=== PATIENT | female | born 1965 | race Caucasian/White ===

== ENCOUNTER 2017-09-06 13:26 | Inpatient (IN) | payer OTHER ==
[~2017-09-06] VITALS: Ht 175.3 cm; Wt 100.2 kg
[2017-09-06] MEDS ORDERED: acetaminophen 325mg tablet PO STA (13:55)
[2017-09-06] MEDS ORDERED: normal saline 1000ML IV soln IV ONE (13:55)
[2017-09-06 14:25] LABS: HEMATOCRIT 25.4 % (35.0-45.0); HEMOGLOBIN 8.4 g/dl (12.0-16.0); MEAN CORPUSCULAR HEMOGLOBIN 23.6 PG (27.0-31.0); MEAN CORPUSCULAR HGB CONC 33.1 % (33.0-36.5); MEAN CORPUSCULAR VOLUME 71.2 FL (78-98); MEAN PLATELET VOLUME 10.1 FL (7.4-10.4); PLATELET COUNT 258 X10'3 (140-440); RED BLOOD COUNT 3.57 X10'6 (4.20-5.60); RED CELL DISTRIBUTION WIDTH 19.6 % (11.5-14.5)
[2017-09-06 14:36] LABS: WHITE BLOOD COUNT 31.8 X10'3 (4.5-11.0)
[2017-09-06] MEDS ORDERED: vancomycin/NS 1 GM ADD-VANTAGE 250 ML IV ONE (14:40)
[2017-09-06] MEDS ORDERED: CefTRIAXone 2gm/NS 100ml IVPB 100 ML IV ONE (14:40)
[2017-09-06 14:49] LABS: ALANINE AMINOTRANSFERASE 51 U/L (12-78); ALBUMIN 1.9 G/DL (3.4-5.0); ALBUMIN/GLOBULIN RATIO 0.4 (1.1-1.5); ALKALINE PHOSPHATASE 218 IU/L (46-116); ANION GAP 13 (8-16); ASPARTATE AMINO TRANSFERASE 36 U/L (10-37); BILIRUBIN,TOTAL 0.7 MG/DL (0.1-1.0); BLOOD UREA NITROGEN 17 MG/DL (7-18); BUN/CREATININE RATIO 12.9 (6.6-38.0); CALCIUM 9.1 MG/DL (8.5-10.1); CHLORIDE 91 MMOL/L (99-107); CREATININE 1.32 MG/DL (0.40-0.90); GLUCOSE 123 MG/DL (70-104); SODIUM 128 MMOL/L (135-145); TOTAL CARBON DIOXIDE 23.9 MMOL/L (24-32); TOTAL PROTEIN 6.7 G/DL (6.4-8.2); eGFR 43 ML/MIN
[2017-09-06 14:52] LABS: POTASSIUM 2.9 MMOL/L (3.5-5.1)
[2017-09-06 14:54] LABS: ANISOCYTOSIS 2+; PLATELET ESTIMATE NORMAL; TOTAL CELLS COUNTED 100
[2017-09-06 14:55] LABS: TOXIC GRANULATION 1+; TOXIC VACUOLATION 1+
[2017-09-06] MEDS ORDERED: potassium Cl oral solution 20 MEQ/15 ML PO ONE (14:55)
[2017-09-06 14:56] LABS: HYPOCHROMASIA 1+; LARGE PLATELETS FEW; SCHISTOCYTES FEW; TARGET CELLS FEW
[2017-09-06 15:54] LABS: COLOR,URINE YELLOW (Yellow); GLUCOSE, URINE NEGATIVE (Neg); KETONES,URINE TRACE mg/dl (Neg); LEUKOCYTE ESTERASE ,URINE MODERATE (Neg); NITRITES, URINE NEGATIVE (Neg); OCCULT BLOOD,URINE MODERATE (Neg); PROTEIN,URINE 100 mg/dl (Neg)
[2017-09-06 15:58] LABS: CLARITY,URINE Cloudy (Clear); UA COLLECTION TYPE CLN CATCH MIDSTREAM
[2017-09-06 16:06] LABS: WBC,URINE 50-100 /HPF (0-4)
[2017-09-06 16:07] LABS: BACTERIA,URINE 2+ /HPF (Neg); RBC,URINE 0-2 /HPF (0-2); SQUAMOUS EPITHELIAL CELL,UR MODERATE /LPF (FEW)
[2017-09-06] MEDS ORDERED: magnesium hydroxide 30ml (MOM) UD suspension PO PRN (16:20)
[2017-09-06] MEDS ORDERED: mag hydrox/Alum hydrox/simeth 30ml oral suspension PO PRN (16:20)
[2017-09-06] MEDS ORDERED: ondansetron/PF 4mg/2ml inj IV PRN (16:20)
[2017-09-06] MEDS ORDERED: potassium Cl 40MEQ/NS 500ml 500 ML IV PRN ×2 (16:20)
[2017-09-06] MEDS ORDERED: potassium Cl 20 mEq SR tablet PO PRN ×2 (16:20)
[2017-09-06] MEDS ORDERED: acetaminophen 325mg tablet PO PRN (16:20)
[2017-09-06] MEDS: enoxaparin 40mg/0.4ml syringe SUBCUT SCH (16:20)
[2017-09-06] MEDS ORDERED: iohexol 300mg/ml 100ml inj. ONE (16:50)
[2017-09-06 19:58] LABS: CREATINE KINASE 68 U/L (26-192)
[2017-09-06] MEDS ORDERED: doxycycline inj 100 MG in normal saline 100ml IV soln 100 ML IV SCH (20:00)
[2017-09-06] MEDS: HYDROcodone/acetaminophen 5mg/325mg tablet PO PRN (20:34)
[2017-09-06] MEDS ORDERED: temazepam 15mg capsule PO PRN (21:00)
[2017-09-06 21:30] VITALS: BP 112/59
[2017-09-06] MEDS: normal saline 1000ml 1,000 ML IV SCH (21:52)
[2017-09-06] MEDS: lactobacillus rhamnosus 10,000 MMU CELLS/CAPSULE PO SCH (22:04)
[2017-09-07] VITALS: BP 121/62
[2017-09-07] MEDS: normal saline 1000ml 1,000 ML IV SCH ×3 (02:19→22:10)
[2017-09-07] MEDS: acetaminophen 325mg tablet PO PRN ×2 (04:57→21:34)
[2017-09-07] MEDS: HYDROcodone/acetaminophen 5mg/325mg tablet PO PRN (04:58)
[2017-09-07 05:05] VITALS: BP 133/57
[2017-09-07 05:28] LABS: HEMATOCRIT 23.5 % (35.0-45.0); HEMOGLOBIN 7.6 g/dl (12.0-16.0); MEAN CORPUSCULAR HEMOGLOBIN 23.3 PG (27.0-31.0); MEAN CORPUSCULAR HGB CONC 32.5 % (33.0-36.5); MEAN CORPUSCULAR VOLUME 71.6 FL (78-98); MEAN PLATELET VOLUME 10.3 FL (7.4-10.4); PLATELET COUNT 289 X10'3 (140-440); RED BLOOD COUNT 3.28 X10'6 (4.20-5.60); RED CELL DISTRIBUTION WIDTH 20.1 % (11.5-14.5); WHITE BLOOD COUNT 24.8 X10'3 (4.5-11.0)
[2017-09-07 05:33] LABS: ALBUMIN 1.6 G/DL (3.4-5.0); ANION GAP 10 (8-16); BLOOD UREA NITROGEN 12 MG/DL (7-18); BUN/CREATININE RATIO 12.8 (6.6-38.0); CALCIUM 8.4 MG/DL (8.5-10.1); CHLORIDE 101 MMOL/L (99-107); CREATININE 0.94 MG/DL (0.40-0.90); GLUCOSE 119 MG/DL (70-104); POTASSIUM 3.7 MMOL/L (3.5-5.1); SODIUM 134 MMOL/L (135-145); TOTAL CARBON DIOXIDE 22.6 MMOL/L (24-32); eGFR 63 ML/MIN
[2017-09-07 05:58] LABS: BANDS% (MANUAL) 3 % (0-10); LYMPHOCYTES % (MANUAL) 4 % (21-51); MONOCYTES % (MANUAL) 2 % (2-12); NEUTROPHILS % (MANUAL) 91 % (42-75); PLATELET ESTIMATE NORMAL; TOTAL CELLS COUNTED 100
[2017-09-07 05:59] LABS: ANISOCYTOSIS 2+; HYPOCHROMASIA 2+; TEAR DROP CELLS 1+; TOXIC GRANULATION 1+
[2017-09-07 06:00] LABS: SCHISTOCYTES FEW
[2017-09-07] MEDS: enoxaparin 40mg/0.4ml syringe SUBCUT SCH (08:00)
[2017-09-07] MEDS: K and/or MAG REPLACEMENT MC SCH (08:00)
[2017-09-07] MEDS: lactobacillus rhamnosus 10,000 MMU CELLS/CAPSULE PO SCH ×2 (09:10→17:49)
[2017-09-07] MEDS: levoFLOXACIN-Levaquin 750MG/D5 150 ML IV SCH (09:10)
[2017-09-07] MEDS ORDERED: CefTRIAXone 2gm/D5W 50ml ADVTG 100 ML IV SCH (12:00)
[2017-09-07] MEDS ORDERED: NO HOME MEDS (12:11)
[2017-09-07 13:01] VITALS: BP 110/52
[2017-09-07 20:00] VITALS: BP 137/65
[2017-09-08] VITALS: BP 141/68
[2017-09-08 03:59] VITALS: BP 135/60
[2017-09-08 05:40] LABS: HEMOGLOBIN 7.1 g/dl (12.0-16.0); MEAN CORPUSCULAR HEMOGLOBIN 23.2 PG (27.0-31.0); MEAN CORPUSCULAR VOLUME 70.3 FL (78-98); MEAN PLATELET VOLUME 9.2 FL (7.4-10.4); PLATELET COUNT 324 X10'3 (140-440); RED BLOOD COUNT 3.06 X10'6 (4.20-5.60); RED CELL DISTRIBUTION WIDTH 19.5 % (11.5-14.5); WHITE BLOOD COUNT 23.5 X10'3 (4.5-11.0)
[2017-09-08 05:50] LABS: ALBUMIN 1.4 G/DL (3.4-5.0); ANION GAP 10 (8-16); BLOOD UREA NITROGEN 6 MG/DL (7-18); CALCIUM 8.5 MG/DL (8.5-10.1); CHLORIDE 102 MMOL/L (99-107); CREATININE 0.75 MG/DL (0.40-0.90); GLUCOSE 99 MG/DL (70-104); POTASSIUM 3.8 MMOL/L (3.5-5.1); SODIUM 136 MMOL/L (135-145); TOTAL CARBON DIOXIDE 24.1 MMOL/L (24-32); eGFR 82 ML/MIN
[2017-09-08 05:57] LABS: HEMATOCRIT 21.5 % (35.0-45.0)
[2017-09-08 06:34] LABS: ANISOCYTOSIS 2+; MICROCYTOSIS 2+; PLATELET ESTIMATE NORMAL; TOTAL CELLS COUNTED 100
[2017-09-08 06:38] LABS: HYPOCHROMASIA 2+; TOXIC GRANULATION 1+
[2017-09-08 07:00] VITALS: BP 147/71
[2017-09-08] MEDS: lactobacillus rhamnosus 10,000 MMU CELLS/CAPSULE PO SCH ×2 (07:07→20:46)
[2017-09-08] MEDS: CefTRIAXone 2gm/NS 100ml IVPB 100 ML IV SCH (07:07)
[2017-09-08] MEDS: acetaminophen 325mg tablet PO PRN (07:08)
[2017-09-08] MEDS: enoxaparin 40mg/0.4ml syringe SUBCUT SCH (08:00)
[2017-09-08] MEDS: K and/or MAG REPLACEMENT MC SCH (08:00)
[2017-09-08] MEDS: levoFLOXACIN-Levaquin 750MG/D5 150 ML IV SCH (08:38)
[2017-09-08] MEDS: normal saline 1000ml 1,000 ML IV SCH ×3 (08:38→20:09)
[2017-09-08 11:00] VITALS: BP 125/62
[2017-09-08] MEDS: LACTOSE-FREE FOOD 237ML (BOOST) PO SCH ×2 (13:36→18:00)
[2017-09-08 19:00] VITALS: BP 155/74
[2017-09-09] VITALS: BP 139/72
[2017-09-09 05:24] LABS: HEMOGLOBIN 7.1 g/dl (12.0-16.0); MEAN CORPUSCULAR HEMOGLOBIN 23.2 PG (27.0-31.0); MEAN CORPUSCULAR HGB CONC 32.3 % (33.0-36.5); MEAN CORPUSCULAR VOLUME 71.7 FL (78-98); MEAN PLATELET VOLUME 9.1 FL (7.4-10.4); PLATELET COUNT 398 X10'3 (140-440); RED BLOOD COUNT 3.04 X10'6 (4.20-5.60); RED CELL DISTRIBUTION WIDTH 19.9 % (11.5-14.5); WHITE BLOOD COUNT 21.5 X10'3 (4.5-11.0)
[2017-09-09 05:55] LABS: HEMATOCRIT 21.8 % (35.0-45.0)
[2017-09-09 05:56] LABS: ALBUMIN 1.4 G/DL (3.4-5.0); ANION GAP 9 (8-16); BLOOD UREA NITROGEN 7 MG/DL (7-18); BUN/CREATININE RATIO 10.8 (6.6-38.0); CALCIUM 8.5 MG/DL (8.5-10.1); CHLORIDE 105 MMOL/L (99-107); CREATININE 0.65 MG/DL (0.40-0.90); GLUCOSE 102 MG/DL (70-104); POTASSIUM 3.5 MMOL/L (3.5-5.1); SODIUM 139 MMOL/L (135-145); eGFR > 90 ML/MIN
[2017-09-09 06:31] LABS: ANISOCYTOSIS 2+; PLATELET ESTIMATE NORMAL; TOTAL CELLS COUNTED 100
[2017-09-09 06:32] LABS: HYPOCHROMASIA 1+; MICROCYTOSIS 1+; POLYCHROMASIA 1+; TOXIC GRANULATION 2+
[2017-09-09 06:33] LABS: ROULEAUX 1+; TARGET CELLS 2+
[2017-09-09 08:00] VITALS: BP 134/67
[2017-09-09] MEDS: enoxaparin 40mg/0.4ml syringe SUBCUT SCH (08:00)
[2017-09-09] MEDS: K and/or MAG REPLACEMENT MC SCH (08:00)
[2017-09-09] MEDS: normal saline 1000ml 1,000 ML IV SCH (08:33)
[2017-09-09] MEDS: CefTRIAXone 2gm/NS 100ml IVPB 100 ML IV SCH (08:33)
[2017-09-09] MEDS: lactobacillus rhamnosus 10,000 MMU CELLS/CAPSULE PO SCH ×2 (08:34→20:20)
[2017-09-09] MEDS: LACTOSE-FREE FOOD 237ML (BOOST) PO SCH ×3 (08:34→19:12)
[2017-09-09] MEDS: levoFLOXACIN-Levaquin 750MG/D5 150 ML IV SCH (10:42)
[2017-09-09 11:00] VITALS: BP 132/65
[2017-09-09 19:30] VITALS: BP 141/73
[2017-09-10] VITALS (9 sets, daily range): BP systolic 118–145; BP diastolic 61–82
[2017-09-10] MEDS: acetaminophen 325mg tablet PO PRN ×2 (03:17→18:07)
[2017-09-10 05:29] LABS: MEAN CORPUSCULAR HEMOGLOBIN 23.5 PG (27.0-31.0); MEAN CORPUSCULAR HGB CONC 32.7 % (33.0-36.5); MEAN PLATELET VOLUME 8.9 FL (7.4-10.4); PLATELET COUNT 446 X10'3 (140-440); RED BLOOD COUNT 2.86 X10'6 (4.20-5.60); RED CELL DISTRIBUTION WIDTH 19.5 % (11.5-14.5)
[2017-09-10 05:39] LABS: HEMATOCRIT 20.6 % (35.0-45.0); HEMOGLOBIN 6.7 g/dl (12.0-16.0)
[2017-09-10 06:03] LABS: ALBUMIN 1.4 G/DL (3.4-5.0); ANION GAP 11 (8-16); BLOOD UREA NITROGEN 6 MG/DL (7-18); BUN/CREATININE RATIO 10.2 (6.6-38.0); CALCIUM 8.2 MG/DL (8.5-10.1); CHLORIDE 101 MMOL/L (99-107); CREATININE 0.59 MG/DL (0.40-0.90); GLUCOSE 104 MG/DL (70-104); POTASSIUM 3.6 MMOL/L (3.5-5.1); SODIUM 135 MMOL/L (135-145); TOTAL CARBON DIOXIDE 23.3 MMOL/L (24-32); eGFR > 90 ML/MIN
[2017-09-10 06:08] LABS: ANISOCYTOSIS 2+; MICROCYTOSIS 1+; PLATELET ESTIMATE INCREASED; TARGET CELLS 1+; TOTAL CELLS COUNTED 100; TOXIC GRANULATION 1+
[2017-09-10 06:09] LABS: POLYCHROMASIA 1+
[2017-09-10] MEDS: K and/or MAG REPLACEMENT MC SCH (07:45)
[2017-09-10] MEDS: lactobacillus rhamnosus 10,000 MMU CELLS/CAPSULE PO SCH ×2 (07:51→20:08)
[2017-09-10] MEDS: CefTRIAXone 2gm/NS 100ml IVPB 100 ML IV SCH (07:51)
[2017-09-10] MEDS: enoxaparin 40mg/0.4ml syringe SUBCUT SCH (07:52)
[2017-09-10] MEDS: LACTOSE-FREE FOOD 237ML (BOOST) PO SCH ×3 (08:00→18:07)
[2017-09-10] MEDS: levoFLOXACIN-Levaquin 750MG/D5 150 ML IV SCH (09:00)
[2017-09-11] MEDS: acetaminophen 325mg tablet PO PRN (00:25)
[2017-09-11 00:30] VITALS: BP 114/60
[2017-09-11] MEDS ORDERED: TRAM50TA2 PO (06:55)
[2017-09-11 07:00] VITALS: BP 140/74
[2017-09-11 07:15] LABS: BASOPHILS % (AUTO) 0 % (0-1); EOSINOPHILS # (AUTO) 0.5 X10'3 (0-0.9); EOSINOPHILS % (AUTO) 2.7 % (0-6); HEMATOCRIT 22.7 % (35.0-45.0); HEMOGLOBIN 7.4 g/dl (12.0-16.0); LYMPHOCYTES % (AUTO) 11.3 % (21-51); MEAN CORPUSCULAR HEMOGLOBIN 23.9 PG (27.0-31.0); MEAN CORPUSCULAR HGB CONC 32.4 % (33.0-36.5); MEAN CORPUSCULAR VOLUME 73.8 FL (78-98); MEAN PLATELET VOLUME 8.5 FL (7.4-10.4); MONOCYTES # (AUTO) 0.6 X10'3 (0-0.9); MONOCYTES % (AUTO) 3.4 % (2-12); NEUTROPHILS # (AUTO) 14.7 X10'3 (1.8-7.7); NEUTROPHILS % (AUTO) 82.6 % (42-75); PLATELET COUNT 521 X10'3 (140-440); RED BLOOD COUNT 3.08 X10'6 (4.20-5.60); RED CELL DISTRIBUTION WIDTH 20.2 % (11.5-14.5); WHITE BLOOD COUNT 17.8 X10'3 (4.5-11.0)
[2017-09-11 07:30] LABS: ALBUMIN 1.4 G/DL (3.4-5.0); ANION GAP 10 (8-16); BLOOD UREA NITROGEN 7 MG/DL (7-18); BUN/CREATININE RATIO 12.1 (6.6-38.0); CALCIUM 8.4 MG/DL (8.5-10.1); CHLORIDE 104 MMOL/L (99-107); CREATININE 0.58 MG/DL (0.40-0.90); GLUCOSE 100 MG/DL (70-104); POTASSIUM 4.2 MMOL/L (3.5-5.1); SODIUM 139 MMOL/L (135-145); TOTAL CARBON DIOXIDE 24.9 MMOL/L (24-32); eGFR > 90 ML/MIN
[2017-09-11] MEDS: levoFLOXACIN-Levaquin 750MG/D5 150 ML IV SCH (07:42)
[2017-09-11] MEDS: LACTOSE-FREE FOOD 237ML (BOOST) PO SCH ×3 (07:43→19:58)
[2017-09-11] MEDS: enoxaparin 40mg/0.4ml syringe SUBCUT SCH (08:00)
[2017-09-11] MEDS: K and/or MAG REPLACEMENT MC SCH (08:00)
[2017-09-11] MEDS: lactobacillus rhamnosus 10,000 MMU CELLS/CAPSULE PO SCH ×2 (09:04→19:59)
[2017-09-11] MEDS: CefTRIAXone 2gm/NS 100ml IVPB 100 ML IV SCH (09:05)
[2017-09-11 12:12] VITALS: BP 121/68
[2017-09-11 13:07] LABS: TOTAL CELLS COUNTED 100
[2017-09-11 13:08] LABS: BANDS% (MANUAL) 2 % (0-10); EOSINOPHILS % (MANUAL) 1 % (0-6); GIANT PLATELET FEW; LARGE PLATELETS FEW; LYMPHOCYTES % (MANUAL) 7 % (21-51); MONOCYTES % (MANUAL) 5 % (2-12); NEUTROPHILS % (MANUAL) 85 % (42-75); PLATELET ESTIMATE INCREASED
[2017-09-11 13:09] LABS: ANISOCYTOSIS 2+; HYPOCHROMASIA 1+; MICROCYTOSIS 1+; POLYCHROMASIA 1+; TARGET CELLS 2+; TOXIC GRANULATION 1+
[2017-09-11 19:45] VITALS: BP 132/63
[2017-09-11 23:30] VITALS: BP 139/54
[2017-09-12 05:40] LABS: BASOPHILS % (AUTO) 0.2 % (0-1); EOSINOPHILS # (AUTO) 0.8 X10'3 (0-0.9); HEMATOCRIT 24.5 % (35.0-45.0); HEMOGLOBIN 8.1 g/dl (12.0-16.0); LYMPHOCYTES # (AUTO) 2.1 X10'3 (1.1-4.8); MEAN CORPUSCULAR HEMOGLOBIN 24.3 PG (27.0-31.0); MEAN CORPUSCULAR VOLUME 73.5 FL (78-98); MEAN PLATELET VOLUME 8.2 FL (7.4-10.4); MONOCYTES # (AUTO) 0.7 X10'3 (0-0.9); MONOCYTES % (AUTO) 3.5 % (2-12); NEUTROPHILS # (AUTO) 15.9 X10'3 (1.8-7.7); NEUTROPHILS % (AUTO) 81.3 % (42-75); PLATELET COUNT 613 X10'3 (140-440); RED BLOOD COUNT 3.33 X10'6 (4.20-5.60); RED CELL DISTRIBUTION WIDTH 20.4 % (11.5-14.5); WHITE BLOOD COUNT 19.6 X10'3 (4.5-11.0)
[2017-09-12 05:53] LABS: ALBUMIN 1.6 G/DL (3.4-5.0); ANION GAP 8 (8-16); BLOOD UREA NITROGEN 7 MG/DL (7-18); BUN/CREATININE RATIO 9.9 (6.6-38.0); CHLORIDE 101 MMOL/L (99-107); CREATININE 0.71 MG/DL (0.40-0.90); GLUCOSE 102 MG/DL (70-104); POTASSIUM 4.6 MMOL/L (3.5-5.1); SODIUM 137 MMOL/L (135-145); TOTAL CARBON DIOXIDE 27.9 MMOL/L (24-32); eGFR 87 ML/MIN
[2017-09-12 07:37] VITALS: BP 136/62
[2017-09-12] MEDS: K and/or MAG REPLACEMENT MC SCH (07:38)
[2017-09-12] MEDS: enoxaparin 40mg/0.4ml syringe SUBCUT SCH (07:38)
[2017-09-12] MEDS: lactobacillus rhamnosus 10,000 MMU CELLS/CAPSULE PO SCH ×2 (07:40→20:10)
[2017-09-12] MEDS: levoFLOXACIN-Levaquin 750MG/D5 150 ML IV SCH (07:41)
[2017-09-12] MEDS: LACTOSE-FREE FOOD 237ML (BOOST) PO SCH ×3 (09:01→20:10)
[2017-09-12 11:42] VITALS: BP 123/54
[2017-09-12 19:00] VITALS: BP 134/46
[2017-09-13] VITALS: BP 132/61
[2017-09-13 07:10] LABS: BASOPHILS # (AUTO) 0.1 X10'3 (0-0.2); BASOPHILS % (AUTO) 0.3 % (0-1); EOSINOPHILS # (AUTO) 0.6 X10'3 (0-0.9); EOSINOPHILS % (AUTO) 3.5 % (0-6); HEMATOCRIT 23.3 % (35.0-45.0); HEMOGLOBIN 7.5 g/dl (12.0-16.0); LYMPHOCYTES # (AUTO) 1.7 X10'3 (1.1-4.8); LYMPHOCYTES % (AUTO) 9.3 % (21-51); MEAN CORPUSCULAR HGB CONC 32.4 % (33.0-36.5); MEAN CORPUSCULAR VOLUME 74.1 FL (78-98); MEAN PLATELET VOLUME 7.9 FL (7.4-10.4); MONOCYTES # (AUTO) 0.8 X10'3 (0-0.9); MONOCYTES % (AUTO) 4.4 % (2-12); NEUTROPHILS # (AUTO) 14.8 X10'3 (1.8-7.7); NEUTROPHILS % (AUTO) 82.5 % (42-75); PLATELET COUNT 614 X10'3 (140-440); RED BLOOD COUNT 3.14 X10'6 (4.20-5.60); RED CELL DISTRIBUTION WIDTH 20.9 % (11.5-14.5); WHITE BLOOD COUNT 17.9 X10'3 (4.5-11.0)
[2017-09-13 07:12] VITALS: BP 121/52
[2017-09-13 07:22] LABS: ALBUMIN 1.6 G/DL (3.4-5.0); ANION GAP 10 (8-16); BLOOD UREA NITROGEN 9 MG/DL (7-18); BUN/CREATININE RATIO 14.8 (6.6-38.0); CHLORIDE 100 MMOL/L (99-107); CREATININE 0.61 MG/DL (0.40-0.90); GLUCOSE 106 MG/DL (70-104); POTASSIUM 4.6 MMOL/L (3.5-5.1); SODIUM 136 MMOL/L (135-145); TOTAL CARBON DIOXIDE 25.9 MMOL/L (24-32); eGFR > 90 ML/MIN
[2017-09-13] MEDS: K and/or MAG REPLACEMENT MC SCH (08:00)
[2017-09-13] MEDS: enoxaparin 40mg/0.4ml syringe SUBCUT SCH (08:00)
[2017-09-13] MEDS: ferrous sulfate 325mg tablet PO SCH ×3 (08:15→17:21)
[2017-09-13] MEDS: lactobacillus rhamnosus 10,000 MMU CELLS/CAPSULE PO SCH ×2 (08:15→20:17)
[2017-09-13] MEDS: docusate sod 100mg capsule PO SCH ×2 (08:15→20:17)
[2017-09-13] MEDS: LACTOSE-FREE FOOD 237ML (BOOST) PO SCH ×3 (08:16→18:18)
[2017-09-13] MEDS: levoFLOXACIN-Levaquin 750MG/D5 150 ML IV SCH (08:16)
[2017-09-13 09:53] LABS: % IRON SATURATION 8 % (11-46); IRON 20 UG/DL (49-151); TOTAL IRON BINDING CAPACITY 258 UG/DL (259-388)
[2017-09-13 10:10] LABS: FERRITIN 186 NG/ML (8-252)
[2017-09-13 11:59] VITALS: BP 119/50
[2017-09-13 16:32] LABS: HEMATOCRIT 25.7 % (35.0-45.0); HEMOGLOBIN 8.3 g/dl (12.0-16.0); MEAN CORPUSCULAR HGB CONC 32.3 % (33.0-36.5); MEAN CORPUSCULAR VOLUME 74.2 FL (78-98); MEAN PLATELET VOLUME 8.1 FL (7.4-10.4); PLATELET COUNT 749 X10'3 (140-440); RED BLOOD COUNT 3.47 X10'6 (4.20-5.60); RED CELL DISTRIBUTION WIDTH 21.1 % (11.5-14.5); WHITE BLOOD COUNT 18.4 X10'3 (4.5-11.0)
[2017-09-13 20:00] VITALS: BP 135/53
[2017-09-13] MEDS ORDERED: HYDROcodone/acetaminophen 5mg/325mg tablet PO PRN (23:25)
[2017-09-13] MEDS ORDERED: HYDROcodone/acetaminophen 10/325mg tab PO PRN (23:25)
[2017-09-13] MEDS: HYDROcodone/acetaminophen 5mg/325mg tablet PO PRN (23:42)
[2017-09-14] VITALS: BP 128/64
[2017-09-14] MEDS: HYDROcodone/acetaminophen 5mg/325mg tablet PO PRN ×3 (05:12→14:15)
[2017-09-14 07:00] VITALS: BP 107/52
[2017-09-14] MEDS: ferrous sulfate 325mg tablet PO SCH ×2 (07:50→12:33)
[2017-09-14] MEDS: lactobacillus rhamnosus 10,000 MMU CELLS/CAPSULE PO SCH (07:50)
[2017-09-14] MEDS: levoFLOXACIN-Levaquin 750MG/D5 150 ML IV SCH (07:50)
[2017-09-14] MEDS: docusate sod 100mg capsule PO SCH (07:51)
[2017-09-14] MEDS: LACTOSE-FREE FOOD 237ML (BOOST) PO SCH ×2 (07:55→13:05)
[2017-09-14] MEDS: K and/or MAG REPLACEMENT MC SCH (08:00)
[2017-09-14] MEDS ORDERED: ascorbic acid 500mg tablet PO SCH (08:30)
[2017-09-14 09:09] LABS: BASOPHILS % (AUTO) 0.2 % (0-1); EOSINOPHILS # (AUTO) 0.4 X10'3 (0-0.9); EOSINOPHILS % (AUTO) 3.1 % (0-6); HEMATOCRIT 23.4 % (35.0-45.0); HEMOGLOBIN 7.5 g/dl (12.0-16.0); LYMPHOCYTES # (AUTO) 1.4 X10'3 (1.1-4.8); LYMPHOCYTES % (AUTO) 10.3 % (21-51); MEAN CORPUSCULAR HGB CONC 32.1 % (33.0-36.5); MEAN CORPUSCULAR VOLUME 74.7 FL (78-98); MEAN PLATELET VOLUME 8.2 FL (7.4-10.4); MONOCYTES # (AUTO) 0.5 X10'3 (0-0.9); MONOCYTES % (AUTO) 3.4 % (2-12); NEUTROPHILS # (AUTO) 11.5 X10'3 (1.8-7.7); PLATELET COUNT 622 X10'3 (140-440); RED BLOOD COUNT 3.13 X10'6 (4.20-5.60); RED CELL DISTRIBUTION WIDTH 21.6 % (11.5-14.5); WHITE BLOOD COUNT 13.9 X10'3 (4.5-11.0)
[2017-09-14] MEDS ORDERED: iohexol 300mg/ml 100ml inj. ONE (10:43)
[2017-09-14 11:47] VITALS: BP 122/63
[2017-09-14] MEDS ORDERED: LEVO750T46 PO (16:28)
== END 2017-09-14 16:45 | disposition home or self-care (01) | DRG 871 ==
LOC: ER 13:27 → EEVIPCON 13:27 → ED HOLD 16:19 → SUR 3N 21:30
PROVIDERS: ADMIT Hospitalist; ATTEND Family Medicine
PROC: BW211ZZ Computerized Tomography (CT Scan) of Abdomen and Pelvis using Low Osmolar Contrast (ICD-10-PCS; 2017-09-06)
PROC: 30233N1 Transfusion of Nonautologous Red Blood Cells into Peripheral Vein, Percutaneous Approach (ICD-10-PCS; 2017-09-10)
PROC: BW211ZZ Computerized Tomography (CT Scan) of Abdomen and Pelvis using Low Osmolar Contrast (ICD-10-PCS; principal; 2017-09-14)
DX: A41.9 Sepsis, unspecified organism (principal); J18.9 Pneumonia, unspecified organism; E87.1 Hypo-osmolality and hyponatremia; D50.9 Iron deficiency anemia, unspecified; F17.210 Nicotine dependence, cigarettes, uncomplicated; D63.8 Anemia in other chronic diseases classified elsewhere; N39.0 Urinary tract infection, site not specified; E86.0 Dehydration; B96.1 Klebsiella pneumoniae [K. pneumoniae] as the cause of diseases classified elsewhere; E87.6 Hypokalemia; J06.9 Acute upper respiratory infection, unspecified; Z83.2 Family history of diseases of the blood and blood-forming organs and certain disorders involving the immune mechanism; Z87.440 Personal history of urinary (tract) infections
CPT/HCPCS: 36415; 70450; 71045; 71046; 72125; 74177; 80048; 80053; 81001; 82550; 82553; 82728; 83540; 83550; 83605; 84145; 85025; 85027; 86885; 86900; 86901; 86920; 87040; 87070; 87077; 87088; 87186; 87210; 87502; 87503; 93005; 96365; 99285; J0696; J1650; J1956; J3370; J3490; J7030; P9016; Q9967

== ENCOUNTER 2017-09-26 14:47 | Outpatient (CLI) | payer OTHER ==
[~2017-09-26 14:47] MED LIST: LEVO750T46 PO; iohexol 300mg/ml 100ml inj. ONE
[2017-09-26 15:38] LABS: BASOPHILS # (AUTO) 0.1 X10'3 (0-0.2); BASOPHILS % (AUTO) 0.6 % (0-1); EOSINOPHILS # (AUTO) 1.1 X10'3 (0-0.9); EOSINOPHILS % (AUTO) 9.7 % (0-6); HEMATOCRIT 31.1 % (35.0-45.0); LYMPHOCYTES # (AUTO) 3.2 X10'3 (1.1-4.8); LYMPHOCYTES % (AUTO) 27.4 % (21-51); MEAN CORPUSCULAR HEMOGLOBIN 24.7 PG (27.0-31.0); MEAN CORPUSCULAR HGB CONC 32.1 % (33.0-36.5); MEAN CORPUSCULAR VOLUME 77.2 FL (78-98); MEAN PLATELET VOLUME 7.8 FL (7.4-10.4); MONOCYTES # (AUTO) 0.6 X10'3 (0-0.9); MONOCYTES % (AUTO) 4.9 % (2-12); NEUTROPHILS # (AUTO) 6.7 X10'3 (1.8-7.7); NEUTROPHILS % (AUTO) 57.4 % (42-75); PLATELET COUNT 459 X10'3 (140-440); RED BLOOD COUNT 4.03 X10'6 (4.20-5.60); RED CELL DISTRIBUTION WIDTH 23.8 % (11.5-14.5); WHITE BLOOD COUNT 11.7 X10'3 (4.5-11.0)
[2017-09-26 15:53] LABS: ALBUMIN 2.7 G/DL (3.4-5.0); ANION GAP 8 (8-16); BLOOD UREA NITROGEN 8 MG/DL (7-18); CALCIUM 9.6 MG/DL (8.5-10.1); CHLORIDE 103 MMOL/L (99-107); GLUCOSE 102 MG/DL (70-104); POTASSIUM 3.9 MMOL/L (3.5-5.1); SODIUM 140 MMOL/L (135-145); TOTAL CARBON DIOXIDE 28.7 MMOL/L (24-32); eGFR 76 ML/MIN
== END 2017-09-26 23:59 | disposition home or self-care (01) ==
LOC: 64 CT 14:47
PROVIDERS: ATTEND Internal Medicine Infectious Disease
DX: L02.211 Cutaneous abscess of abdominal wall (principal); K80.20 Calculus of gallbladder without cholecystitis without obstruction
CPT/HCPCS: 36415; 74177; 80048; 85025; J7030; Q9967

== ENCOUNTER 2017-09-28 07:13 | Day surgery (SDC) | payer OTHER ==
[~2017-09-28] VITALS: Ht 175.3 cm; Wt 94.8 kg
[2017-09-28] VITALS (14 sets, daily range): BP systolic 111–142; BP diastolic 39–81
[~2017-09-28 07:13] MED LIST changes: -iohexol 300mg/ml 100ml inj. ONE
[2017-09-28] MEDS ORDERED: LEVO750T21 PO (07:41)
[2017-09-28] MEDS ORDERED: IRON1CAP34 PO (07:41)
[2017-09-28] MEDS ORDERED: normal saline 1000ml 1,000 ML IV SCH (08:00)
[2017-09-28] MEDS ORDERED: LIDOcaine 1%/PF (10mg/ml) 5ml vial SQ ONE ×2 (09:05→09:15)
[2017-09-28] MEDS ORDERED: fentaNYL/PF 50MCG/1 ML 2ML syringe IV PRN (09:05)
[2017-09-28] MEDS ORDERED: midazolam 2 mg/2 ml injection IV PRN (09:05)
[2017-09-28] MEDS ORDERED: midazolam 2 mg/2 ml injection ONE (09:37)
[2017-09-28] MEDS ORDERED: fentaNYL/PF 50MCG/1 ML 2ML syringe ONE (09:37)
== END 2017-09-28 11:30 | disposition home or self-care (01) ==
LOC: SSTAY O 07:13
PROVIDERS: ATTEND Radiology Diagnostic Radiology
DX: N73.8 Other specified female pelvic inflammatory diseases (principal); Z79.2 Long term (current) use of antibiotics; Z87.891 Personal history of nicotine dependence; Z90.89 Acquired absence of other organs; Z98.890 Other specified postprocedural states
CPT/HCPCS: 49406; 87070; 99152; 99153; J2250; J3010; J7030; J2001

== ENCOUNTER 2017-10-07 21:26 | Emergency (ER) | payer OTHER ==
[~2017-10-07] VITALS: Ht 175.3 cm; Wt 90.9 kg
[~2017-10-07 21:26] MED LIST changes: +IRON1CAP34 PO; +LEVO750T21 PO; -LEVO750T46 PO
[2017-10-07] MEDS ORDERED: LIDOcaine 1.5% w/epinephrine 1:200,000 5ml ampul IJ ONE (21:35)
[2017-10-07 22:01] VITALS: BP 129/64
== END 2017-10-07 22:04 | disposition home or self-care (01) ==
LOC: EEVIPCON 21:26 → ER 21:26
DX: L02.411 Cutaneous abscess of right axilla (principal); F17.200 Nicotine dependence, unspecified, uncomplicated; Z79.899 Other long term (current) drug therapy
CPT/HCPCS: 10060; 99283; A6255; A6449; J3490

== ENCOUNTER 2018-03-03 23:25 | Emergency (ER) | payer OTHER ==
[~2018-03-03] VITALS: Ht 175.3 cm; Wt 102.3 kg
[2018-03-03] MEDS ORDERED: normal saline 1000ML IV soln IVB ONE (23:35)
[2018-03-03] MEDS ORDERED: proCHLORperazine 10 MG/2 ml inj IV PRN (23:35)
[2018-03-04 00:03] LABS: BASOPHILS % (AUTO) 0.4 % (0-1); EOSINOPHILS # (AUTO) 0.4 X10'3 (0-0.9); EOSINOPHILS % (AUTO) 5.4 % (0-6); HEMATOCRIT 40.3 % (35.0-45.0); HEMOGLOBIN 13.6 g/dl (12.0-16.0); LYMPHOCYTES # (AUTO) 2.1 X10'3 (1.1-4.8); LYMPHOCYTES % (AUTO) 26.7 % (21-51); MEAN CORPUSCULAR HEMOGLOBIN 31.4 PG (27.0-31.0); MEAN CORPUSCULAR HGB CONC 33.7 % (33.0-36.5); MEAN CORPUSCULAR VOLUME 93.2 FL (78-98); MEAN PLATELET VOLUME 9.3 FL (7.4-10.4); MONOCYTES # (AUTO) 0.6 X10'3 (0-0.9); MONOCYTES % (AUTO) 7.1 % (2-12); NEUTROPHILS # (AUTO) 4.8 X10'3 (1.8-7.7); NEUTROPHILS % (AUTO) 60.4 % (42-75); PLATELET COUNT 194 X10'3 (140-440); RED BLOOD COUNT 4.32 X10'6 (4.20-5.60); RED CELL DISTRIBUTION WIDTH 14.8 % (11.5-14.5)
[2018-03-04 00:15] LABS: PARTIAL THROMBOPLASTIN TIME 27 SECONDS (22-32)
[2018-03-04 00:18] LABS: ALANINE AMINOTRANSFERASE 18 U/L (12-78); ALBUMIN 3.9 G/DL (3.4-5.0); ALBUMIN/GLOBULIN RATIO 1.1 (1.1-1.5); ALKALINE PHOSPHATASE 85 IU/L (46-116); ANION GAP 12 (8-16); ASPARTATE AMINO TRANSFERASE 12 U/L (10-37); BILIRUBIN,TOTAL 0.4 MG/DL (0.1-1.0); BLOOD UREA NITROGEN 15 MG/DL (7-18); BUN/CREATININE RATIO 18.5 (6.6-38.0); CALCIUM 9.6 MG/DL (8.5-10.1); CHLORIDE 100 MMOL/L (99-107); CREATININE 0.81 MG/DL (0.40-0.90); GLUCOSE 97 MG/DL (70-104); LIPASE 105 U/L (73-393); MAGNESIUM 1.8 MG/DL (1.5-2.4); POTASSIUM 3.7 MMOL/L (3.5-5.1); SODIUM 138 MMOL/L (135-145); TOTAL CARBON DIOXIDE 25.6 MMOL/L (24-32); TOTAL PROTEIN 7.4 G/DL (6.4-8.2); eGFR 75 ML/MIN
[2018-03-04 00:45] VITALS: BP 162/88
== END 2018-03-04 00:59 | disposition home or self-care (01) ==
LOC: ER 23:26
DX: R11.2 Nausea with vomiting, unspecified (principal); Z90.89 Acquired absence of other organs; Z79.899 Other long term (current) drug therapy
CPT/HCPCS: 36415; 80053; 83690; 83735; 84484; 85025; 85610; 85730; 93005; 96361; 96374; 99285; J0780

== ENCOUNTER 2019-02-03 13:27 | Emergency (ER) | payer OTHER ==
[~2019-02-03] VITALS: Ht 175.3 cm; Wt 98.0 kg
[2019-02-03] MEDS ORDERED: diazepam 5mg tablet PO ONE (13:40)
[2019-02-03] MEDS ORDERED: ketorolac trometh. 30mg/ml inj. IV ONE (13:40)
[2019-02-03] MEDS ORDERED: LIDOcaine 1% 30ml preserv. free vial IJ ONE (13:40)
[2019-02-03] MEDS ORDERED: morphine 4 MG/ML inj SYRINge IV ONE (15:05)
[2019-02-03] MEDS ORDERED: ondansetron/PF 4mg/2ml inj IV ONE (15:05)
[2019-02-03] MEDS ORDERED: DIAZ5TAB PO (15:06)
[2019-02-03] MEDS ORDERED: IBUP-1984 PO (15:06)
[2019-02-03] MEDS ORDERED: HYDR-3965 PO (15:06)
[2019-02-03] MEDS ORDERED: ONDA4TAB12 PO (15:06)
[2019-02-03 15:22] VITALS: BP 125/76
== END 2019-02-03 15:25 | disposition home or self-care (01) ==
LOC: ER 13:27
DX: M54.42 Lumbago with sciatica, left side (principal); Z86.2 Personal history of diseases of the blood and blood-forming organs and certain disorders involving the immune mechanism; Z90.89 Acquired absence of other organs; Z87.891 Personal history of nicotine dependence; Z79.899 Other long term (current) drug therapy
CPT/HCPCS: 20552; 72192; 96374; 96375; 99284; J1885; J2001; J2270; J2405

== ENCOUNTER 2019-02-07 11:14 | Emergency (ER) | payer OTHER ==
[~2019-02-07] VITALS: Ht 175.3 cm; Wt 97.0 kg
[~2019-02-07 11:14] MED LIST changes: +DIAZ5TAB PO; +HYDR-3965 PO; +IBUP-1984 PO; +ONDA4TAB12 PO
[2019-02-07] MEDS ORDERED: morphine 4 MG/ML inj SYRINge IV ONE ×2 (11:25→13:15)
[2019-02-07] MEDS ORDERED: ketorolac trometh. 30mg/ml inj. IV ONE (11:25)
[2019-02-07] MEDS ORDERED: ondansetron/PF 4mg/2ml inj IV ONE (11:25)
[2019-02-07 12:41] LABS: HEMOGLOBIN 14.8 g/dl (12.0-16.0); MEAN PLATELET VOLUME 9.6 FL (7.4-10.4); MONOCYTES # (AUTO) 0.6 X10'3 (0-0.9); NEUTROPHILS # (AUTO) 6.2 X10'3 (1.8-7.7); RED CELL DISTRIBUTION WIDTH 13.4 % (11.5-14.5); WHITE BLOOD COUNT 9.6 X10'3 (4.5-11.0)
[2019-02-07 12:43] LABS: CLARITY,URINE SLIGHTLY CLOUDY (Clear); COLOR,URINE STRAW (Yellow); GLUCOSE, URINE NEGATIVE (Neg); KETONES,URINE NEGATIVE (Neg); LEUKOCYTE ESTERASE ,URINE NEGATIVE (Neg); NITRITES, URINE NEGATIVE (Neg); OCCULT BLOOD,URINE NEGATIVE (Neg); PH,URINE 5.5 (4.8-8.0); PROTEIN,URINE NEGATIVE (Neg); URINE HCG NEGATIVE (NEG); UROBILINOGEN,URINE 0.2 E.U/dL (0.2-1.0)
[2019-02-07 12:44] LABS: BASOPHILS # (AUTO) 0.1 X10'3 (0-0.2); BASOPHILS % (AUTO) 0.8 % (0-1); EOSINOPHILS # (AUTO) 0.7 X10'3 (0-0.9); EOSINOPHILS % (AUTO) 7.5 % (0-6); HEMATOCRIT 44.2 % (35.0-45.0); LYMPHOCYTES % (AUTO) 20.5 % (21-51); MEAN CORPUSCULAR HEMOGLOBIN 31.3 PG (27.0-31.0); MEAN CORPUSCULAR HGB CONC 33.4 g/dL (33.0-36.5); MEAN CORPUSCULAR VOLUME 93.7 FL (78-98); MONOCYTES % (AUTO) 6.3 % (2-12); NEUTROPHILS % (AUTO) 64.9 % (42-75); PLATELET COUNT 207 X10'3 (140-440); RED BLOOD COUNT 4.72 X10'6 (4.20-5.60)
[2019-02-07 12:44] LABS: UA COLLECTION TYPE VOIDED
[2019-02-07 12:51] LABS: ALANINE AMINOTRANSFERASE 29 U/L (12-78); ALBUMIN 3.6 G/DL (3.4-5.0); ALBUMIN/GLOBULIN RATIO 1.1 (1.1-1.5); ALKALINE PHOSPHATASE 81 IU/L (46-116); ANION GAP 8 (8-16); ASPARTATE AMINO TRANSFERASE 18 U/L (10-37); BILIRUBIN,TOTAL 0.4 MG/DL (0.1-1.0); BLOOD UREA NITROGEN 14 MG/DL (7-18); BUN/CREATININE RATIO 16.3 (6.6-38.0); CALCIUM 9.3 MG/DL (8.5-10.1); CHLORIDE 106 MMOL/L (99-107); CREATININE 0.86 MG/DL (0.40-0.90); GLUCOSE 102 MG/DL (70-104); SODIUM 141 MMOL/L (135-145); TOTAL CARBON DIOXIDE 26.7 MMOL/L (24-32); eGFR 69 ML/MIN
[2019-02-07 13:04] LABS: BACTERIA,URINE FEW /HPF (Neg); MUCUS STRANDS FEW /LPF (Neg); RBC,URINE 0-2 /HPF (0-2); SQUAMOUS EPITHELIAL CELL,UR MANY /LPF (FEW); WBC,URINE 0-4 /HPF (0-4)
[2019-02-07] MEDS ORDERED: CYCL-1 PO (14:42)
[2019-02-07] MEDS ORDERED: DICL50TA8 PO (14:42)
[2019-02-07 14:51] VITALS: BP 161/85
== END 2019-02-07 14:52 | disposition home or self-care (01) ==
LOC: ER 11:14
DX: M54.5 Low back pain (principal); R53.1 Weakness; R25.2 Cramp and spasm; Z79.899 Other long term (current) drug therapy; Z79.2 Long term (current) use of antibiotics; Z79.1 Long term (current) use of non-steroidal anti-inflammatories (NSAID); Z90.89 Acquired absence of other organs; Z86.2 Personal history of diseases of the blood and blood-forming organs and certain disorders involving the immune mechanism; Z87.440 Personal history of urinary (tract) infections; W22.8XXA Striking against or struck by other objects, initial encounter; Y93.89 Activity, other specified; Y92.89 Other specified places as the place of occurrence of the external cause; Y99.8 Other external cause status
CPT/HCPCS: 36415; 72148; 80053; 81001; 81025; 85025; 96374; 96375; 96376; 99284; J1885; J2270; J2405

== ENCOUNTER 2019-11-10 18:22 | Emergency (ER) | payer OTHER ==
[~2019-11-10] VITALS: Ht 175.3 cm; Wt 100.0 kg
[~2019-11-10 18:22] MED LIST changes: +CYCL-1 PO; +DICL50TA8 PO; -HYDR-3965 PO; -IBUP-1984 PO
[2019-11-10 18:30] VITALS: BP 132/70
[2019-11-10 19:01] LABS: BASOPHILS # (AUTO) 0.1 X10'3 (0-0.2); BASOPHILS % (AUTO) 0.7 % (0-1); EOSINOPHILS # (AUTO) 0.5 X10'3 (0-0.9); EOSINOPHILS % (AUTO) 6.3 % (0-6); HEMATOCRIT 44.5 % (35.0-45.0); HEMOGLOBIN 14.6 g/dl (12.0-16.0); LYMPHOCYTES # (AUTO) 2.3 X10'3 (1.1-4.8); LYMPHOCYTES % (AUTO) 30.1 % (21-51); MEAN CORPUSCULAR HEMOGLOBIN 31.5 PG (27.0-31.0); MEAN CORPUSCULAR HGB CONC 32.9 g/dL (33.0-36.5); MEAN CORPUSCULAR VOLUME 95.8 FL (78-98); MEAN PLATELET VOLUME 9.4 FL (7.4-10.4); MONOCYTES # (AUTO) 0.5 X10'3 (0-0.9); NEUTROPHILS # (AUTO) 4.3 X10'3 (1.8-7.7); NEUTROPHILS % (AUTO) 56.9 % (42-75); PLATELET COUNT 202 X10'3 (140-440); RED BLOOD COUNT 4.64 X10'6 (4.20-5.60); RED CELL DISTRIBUTION WIDTH 14.1 % (11.5-14.5); WHITE BLOOD COUNT 7.6 X10'3 (4.5-11.0)
[2019-11-10 19:11] LABS: ALANINE AMINOTRANSFERASE 21 U/L (12-78); ALBUMIN 4.1 G/DL (3.4-5.0); ALBUMIN/GLOBULIN RATIO 1.2 (1.1-1.5); ALKALINE PHOSPHATASE 109 IU/L (46-116); ANION GAP 6 (8-16); ASPARTATE AMINO TRANSFERASE 14 U/L (10-37); BILIRUBIN,TOTAL 0.4 MG/DL (0.1-1.0); BLOOD UREA NITROGEN 17 MG/DL (7-18); BUN/CREATININE RATIO 20.2 (6.6-38.0); CALCIUM 10.1 MG/DL (8.5-10.1); CHLORIDE 105 MMOL/L (99-107); CREATININE 0.84 MG/DL (0.40-0.90); GLUCOSE 112 MG/DL (70-104); POTASSIUM 4.3 MMOL/L (3.5-5.1); SODIUM 140 MMOL/L (135-145); TOTAL CARBON DIOXIDE 28.6 MMOL/L (24-32); TOTAL PROTEIN 7.4 G/DL (6.4-8.2); eGFR 71 ML/MIN
[2019-11-10] MEDS ORDERED: DICL100G30 TOP (21:33)
== END 2019-11-10 19:46 | disposition home or self-care (01) ==
LOC: ER 18:22
DX: R07.89 Other chest pain (principal); Z90.89 Acquired absence of other organs; Z79.899 Other long term (current) drug therapy
CPT/HCPCS: 36415; 71046; 80053; 84484; 85025; 93005; 99285

== ENCOUNTER 2020-03-08 13:19 | Emergency (ER) | payer OTHER ==
[~2020-03-08] VITALS: Ht 175.3 cm; Wt 105.3 kg
[~2020-03-08 13:19] MED LIST changes: +DICL100G30 TOP; +LIDOcaine 1% W/epiNEPHrine 1:200,000 10ml vial ONE
[2020-03-08 13:34] VITALS: BP 135/75
[2020-03-08] MEDS ORDERED: CEPH250T PO (15:56)
== END 2020-03-08 16:28 | disposition home or self-care (01) ==
LOC: EEVIPCON 13:20 → ER 13:20
DX: L03.011 Cellulitis of right finger (principal); Z98.890 Other specified postprocedural states; Z79.2 Long term (current) use of antibiotics; Z79.899 Other long term (current) drug therapy
CPT/HCPCS: 10060; 99283

== ENCOUNTER 2020-09-15 01:02 | Outpatient (CLI) | payer BC ==
[~2020-09-15 01:02] MED LIST changes: -LIDOcaine 1% W/epiNEPHrine 1:200,000 10ml vial ONE
[2020-09-15 20:12] LABS: BASOPHILS % (AUTO) 0.5 % (0-1); EOSINOPHILS # (AUTO) 0.2 X10'3 (0-0.9); EOSINOPHILS % (AUTO) 3.8 % (0-6); HEMATOCRIT 42.5 % (35.0-45.0); HEMOGLOBIN 13.9 g/dl (12.0-16.0); LYMPHOCYTES # (AUTO) 1.8 X10'3 (1.1-4.8); LYMPHOCYTES % (AUTO) 29.4 % (21-51); MEAN CORPUSCULAR HEMOGLOBIN 31.2 PG (27.0-31.0); MEAN CORPUSCULAR HGB CONC 32.8 g/dL (33.0-36.5); MEAN CORPUSCULAR VOLUME 95.1 FL (78-98); MEAN PLATELET VOLUME 9.1 FL (7.4-10.4); MONOCYTES # (AUTO) 0.3 X10'3 (0-0.9); MONOCYTES % (AUTO) 5.7 % (2-12); NEUTROPHILS # (AUTO) 3.7 X10'3 (1.8-7.7); NEUTROPHILS % (AUTO) 60.6 % (42-75); PLATELET COUNT 189 X10'3 (140-440); RED BLOOD COUNT 4.47 X10'6 (4.20-5.60); RED CELL DISTRIBUTION WIDTH 13.3 % (11.5-14.5); WHITE BLOOD COUNT 6.1 X10'3 (4.5-11.0)
[2020-09-15 20:26] LABS: HEMOGLOBIN A1C 5.3 % (4.5-6.2)
[2020-09-15 20:29] LABS: ALANINE AMINOTRANSFERASE 26 U/L (12-78); ALBUMIN 4.1 G/DL (3.4-5.0); ALBUMIN/GLOBULIN RATIO 1.2 (1.1-1.5); ANION GAP 11 (8-16); ASPARTATE AMINO TRANSFERASE 15 U/L (10-37); BILIRUBIN,TOTAL 0.7 MG/DL (0.1-1.0); BLOOD UREA NITROGEN 14 MG/DL (7-18); BUN/CREATININE RATIO 19.2 (6.6-38.0); CALCIUM 9.5 MG/DL (8.5-10.1); CHLORIDE 104 MMOL/L (99-107); CREATININE 0.73 MG/DL (0.40-0.90); GLUCOSE 101 MG/DL (70-104); SODIUM 142 MMOL/L (135-145); TOTAL CARBON DIOXIDE 27.1 MMOL/L (24-32); TOTAL PROTEIN 7.4 G/DL (6.4-8.2); eGFR 83 ML/MIN
[2020-09-15 20:30] LABS: ALKALINE PHOSPHATASE 91 IU/L (46-116); CHOL/HDL RATIO 2.3 (0.00-4.99); CHOLESTEROL 210 MG/DL (0-200); HDL CHOLESTEROL 91 MG/DL (35-60); LDL CHOLESTEROL 106 MG/DL (50-100); TRIGLYCERIDES 42 MG/DL (20-135)
[2020-09-15 21:44] LABS: CLARITY,URINE SLIGHTLY CLOUDY (Clear); COLOR,URINE YELLOW (Yellow); GLUCOSE, URINE NEGATIVE (Neg); KETONES,URINE NEGATIVE (Neg); LEUKOCYTE ESTERASE ,URINE TRACE (Neg); NITRITES, URINE POSITIVE (Neg); OCCULT BLOOD,URINE NEGATIVE (Neg); PH,URINE 6.5 (4.8-8.0); PROTEIN,URINE NEGATIVE (Neg); UROBILINOGEN,URINE 0.2 E.U/dL (0.2-1.0)
[2020-09-15 21:46] LABS: UA COLLECTION TYPE NON-SPECIFIED
[2020-09-15 21:53] LABS: BACTERIA,URINE 4+ /HPF (Neg); RBC,URINE NONE SEEN /HPF (0-2); SQUAMOUS EPITHELIAL CELL,UR FEW /LPF (FEW); WBC,URINE 0-4 /HPF (0-4)
== END 2020-09-15 23:59 | disposition home or self-care (01) ==
LOC: LAB 01:02
PROVIDERS: ATTEND General Practice
DX: E78.5 Hyperlipidemia, unspecified (principal); D64.89 Other specified anemias; R73.09 Other abnormal glucose; Z79.899 Other long term (current) drug therapy
CPT/HCPCS: 36415; 80053; 80061; 81001; 82306; 82607; 83036; 84443; 85025; 87077; 87088; 87186

== ENCOUNTER 2021-04-24 05:20 | Emergency (ER) | payer BC ==
[~2021-04-24] VITALS: Ht 175.3 cm; Wt 106.8 kg
[2021-04-24] MEDS ORDERED: aspirin 81mg tab.chew PO ONE (05:30)
[2021-04-24] MEDS: nitroGLYCERIN 0.4mg SUBLingual tab SL PRN (05:42)
[2021-04-24 05:44] LABS: BASOPHILS # (AUTO) 0.1 X10'3 (0-0.2); BASOPHILS % (AUTO) 0.8 % (0-1); EOSINOPHILS # (AUTO) 0.4 X10'3 (0-0.9); EOSINOPHILS % (AUTO) 3.9 % (0-6); HEMATOCRIT 42.6 % (35.0-45.0); LYMPHOCYTES # (AUTO) 3.3 X10'3 (1.1-4.8); LYMPHOCYTES % (AUTO) 35.8 % (21-51); MEAN CORPUSCULAR HEMOGLOBIN 31.3 PG (27.0-31.0); MEAN CORPUSCULAR HGB CONC 32.9 g/dL (33.0-36.5); MEAN CORPUSCULAR VOLUME 95.1 FL (78-98); MEAN PLATELET VOLUME 9.2 FL (7.4-10.4); MONOCYTES # (AUTO) 0.6 X10'3 (0-0.9); MONOCYTES % (AUTO) 7.1 % (2-12); NEUTROPHILS # (AUTO) 4.8 X10'3 (1.8-7.7); NEUTROPHILS % (AUTO) 52.4 % (42-75); PLATELET COUNT 204 X10'3 (140-440); RED BLOOD COUNT 4.48 X10'6 (4.20-5.60); RED CELL DISTRIBUTION WIDTH 13.5 % (11.5-14.5); WHITE BLOOD COUNT 9.2 X10'3 (4.5-11.0)
[2021-04-24 05:59] LABS: ANION GAP 13 (8-16); BILIRUBIN,TOTAL 0.5 MG/DL (0.1-1.0); BLOOD UREA NITROGEN 15 MG/DL (7-18); BUN/CREATININE RATIO 17.6 (6.6-38.0); CALCIUM 9.7 MG/DL (8.5-10.1); CHLORIDE 104 MMOL/L (99-107); CREATININE 0.85 MG/DL (0.40-0.90); GLUCOSE 104 MG/DL (70-104); POTASSIUM 3.8 MMOL/L (3.5-5.1); SODIUM 143 MMOL/L (135-145); TOTAL CARBON DIOXIDE 25.9 MMOL/L (24-32); TOTAL PROTEIN 7.9 G/DL (6.4-8.2); eGFR 70 ML/MIN
[2021-04-24 06:00] LABS: ALANINE AMINOTRANSFERASE 23 U/L (12-78); ALBUMIN 4.1 G/DL (3.4-5.0); ALBUMIN/GLOBULIN RATIO 1.1 (1.1-1.5); ALKALINE PHOSPHATASE 100 IU/L (46-116); ASPARTATE AMINO TRANSFERASE 16 U/L (10-37)
[2021-04-24 06:01] LABS: D-DIMER < 0.19 MG/L FEU (0-0.50)
[2021-04-24] MEDS ORDERED: ketorolac tromethamine 15mg/ml inj. IV ONE (06:10)
--- NOTE | 2021-04-24 06:48 | NUR ---
Toradol administered. Pt reported pain just above IV site. No signs of infiltration, however IV discontinued as precaution.
[2021-04-24 09:12] VITALS: BP 139/78
== END 2021-04-24 09:13 | disposition home or self-care (01) ==
LOC: ER 05:20
DX: R07.89 Other chest pain (principal); R07.2 Precordial pain; Z87.440 Personal history of urinary (tract) infections; Z86.2 Personal history of diseases of the blood and blood-forming organs and certain disorders involving the immune mechanism; Z90.89 Acquired absence of other organs; Z79.2 Long term (current) use of antibiotics; Z79.899 Other long term (current) drug therapy
CPT/HCPCS: 36415; 71045; 80053; 83880; 84484; 85025; 85379; 93005; 96374; 99285; J1885

== ENCOUNTER 2021-06-03 13:26 | Emergency (ER) | payer BC ==
[~2021-06-03] VITALS: Ht 175.3 cm; Wt 104.5 kg
[2021-06-03 13:36] VITALS: BP 156/75
== END 2021-06-03 14:43 | disposition home or self-care (01) ==
LOC: ER 13:26
DX: Z11.52 Encounter for screening for COVID-19 (principal); Z20.822 Contact with and (suspected) exposure to COVID-19; J02.9 Acute pharyngitis, unspecified; B34.9 Viral infection, unspecified; R50.9 Fever, unspecified; R09.81 Nasal congestion; R05.9 Cough, unspecified; F17.200 Nicotine dependence, unspecified, uncomplicated; Z86.2 Personal history of diseases of the blood and blood-forming organs and certain disorders involving the immune mechanism; Z87.440 Personal history of urinary (tract) infections; Z90.89 Acquired absence of other organs; Z72.89 Other problems related to lifestyle; Z79.899 Other long term (current) drug therapy
CPT/HCPCS: 87635; 99283; C9803

== ENCOUNTER 2022-02-09 18:51 | Emergency (ER) | payer BC ==
[~2022-02-09] VITALS: Ht 175.3 cm; Wt 113.6 kg
[2022-02-09 21:02] VITALS: BP 148/77
== END 2022-02-09 21:04 | disposition home or self-care (01) ==
LOC: ER 18:52
DX: S99.921A Unspecified injury of right foot, initial encounter (principal); W18.40XA Slipping, tripping and stumbling without falling, unspecified, initial encounter; Y93.53 Activity, golf; Y92.89 Other specified places as the place of occurrence of the external cause; Y99.8 Other external cause status
CPT/HCPCS: 29515; 73630; 99283; L1930; L4360

== ENCOUNTER 2022-02-14 15:14 | Emergency (ER) | payer BC ==
[~2022-02-14] VITALS: Ht 175.3 cm; Wt 104.5 kg
[2022-02-14] MEDS ORDERED: ketorolac trometh. 30mg/ml inj. IV ONE (16:00)
[2022-02-14] MEDS ORDERED: ondansetron/PF 4mg/2ml inj IV ONE (16:00)
[2022-02-14] MEDS ORDERED: diazepam inj 5 MG/ML inj. IV ONE (16:00)
[2022-02-14] MEDS ORDERED: ONDA4TAB12 PO (18:13)
[2022-02-14] MEDS ORDERED: TRAM50TA2 PO (18:13)
[2022-02-14] MEDS ORDERED: ORPH100T2 PO (18:13)
[2022-02-14 18:18] VITALS: BP 180/80
== END 2022-02-14 18:20 | disposition home or self-care (01) ==
LOC: ER 15:15
DX: S62.313A Displaced fracture of base of third metacarpal bone, left hand, initial encounter for closed fracture (principal); S62.315A Displaced fracture of base of fourth metacarpal bone, left hand, initial encounter for closed fracture; S16.1XXA Strain of muscle, fascia and tendon at neck level, initial encounter; W18.39XA Other fall on same level, initial encounter; Z86.2 Personal history of diseases of the blood and blood-forming organs and certain disorders involving the immune mechanism; Z79.899 Other long term (current) drug therapy; Z79.1 Long term (current) use of non-steroidal anti-inflammatories (NSAID); Y93.89 Activity, other specified; Y92.89 Other specified places as the place of occurrence of the external cause; Y99.8 Other external cause status
CPT/HCPCS: 29515; 72125; 73700; 96374; 96375; 99285; J1885; J2405; J3360; 29405; A6446; A6449

== ENCOUNTER 2022-05-09 11:19 | Outpatient (CLI) | payer BC ==
[~2022-05-09 11:19] MED LIST changes: +ORPH100T2 PO
[2022-05-09 12:32] LABS: BASOPHILS % (AUTO) 0.3 % (0-1); EOSINOPHILS % (AUTO) 0.3 % (0-6); HEMATOCRIT 41.1 % (35.0-45.0); HEMOGLOBIN 13.7 g/dl (12.0-16.0); LYMPHOCYTES # (AUTO) 0.7 X10'3 (1.1-4.8); LYMPHOCYTES % (AUTO) 6.3 % (21-51); MEAN CORPUSCULAR HGB CONC 33.4 g/dL (33.0-36.5); MEAN CORPUSCULAR VOLUME 92.7 FL (78-98); MEAN PLATELET VOLUME 9.2 FL (7.4-10.4); MONOCYTES # (AUTO) 0.1 X10'3 (0-0.9); NEUTROPHILS # (AUTO) 10.3 X10'3 (1.8-7.7); NEUTROPHILS % (AUTO) 92.1 % (42-75); PLATELET COUNT 184 X10'3 (140-440); RED BLOOD COUNT 4.43 X10'6 (4.20-5.60); RED CELL DISTRIBUTION WIDTH 12.3 % (11.5-14.5); WHITE BLOOD COUNT 11.2 X10'3 (4.5-11.0)
[2022-05-09 12:44] LABS: HEMOGLOBIN A1C 5.4 % (4.5-6.2)
[2022-05-09 12:49] LABS: ALANINE AMINOTRANSFERASE 20 U/L (12-78); ALBUMIN 4.1 G/DL (3.4-5.0); ALBUMIN/GLOBULIN RATIO 1.3 (1.1-1.5); ALKALINE PHOSPHATASE 89 IU/L (46-116); ANION GAP 8 (8-16); ASPARTATE AMINO TRANSFERASE 13 U/L (10-37); BILIRUBIN,TOTAL 0.4 MG/DL (0.1-1.0); BLOOD UREA NITROGEN 15 MG/DL (7-18); BUN/CREATININE RATIO 17.6 (6.6-38.0); CALCIUM 9.6 MG/DL (8.5-10.1); CHLORIDE 100 MMOL/L (99-107); CHOL/HDL RATIO 2.8 (0.00-4.99); CHOLESTEROL 198 MG/DL (0-200); CREATININE 0.85 MG/DL (0.40-0.90); GLUCOSE 123 MG/DL (70-104); HDL CHOLESTEROL 71 MG/DL (35-60); LDL CHOLESTEROL 109 MG/DL (50-100); POTASSIUM 4.1 MMOL/L (3.5-5.1); SODIUM 135 MMOL/L (135-145); TOTAL CARBON DIOXIDE 27.5 MMOL/L (24-32); TOTAL PROTEIN 7.3 G/DL (6.4-8.2); TRIGLYCERIDES 54 MG/DL (20-135); eGFR 69 ML/MIN
[2022-05-09 13:09] LABS: CLARITY,URINE CLOUDY (Clear); COLOR,URINE YELLOW (Yellow); GLUCOSE, URINE NEGATIVE (Neg); KETONES,URINE NEGATIVE (Neg); LEUKOCYTE ESTERASE ,URINE NEGATIVE (Neg); NITRITES, URINE POSITIVE (Neg); OCCULT BLOOD,URINE NEGATIVE (Neg); PH,URINE 5.5 (4.8-8.0); PROTEIN,URINE NEGATIVE (Neg); UROBILINOGEN,URINE 0.2 E.U/dL (0.2-1.0)
[2022-05-09 13:10] LABS: UA COLLECTION TYPE NON-SPECIFIED
[2022-05-09 13:39] LABS: MUCUS STRANDS FEW /LPF (Neg); SQUAMOUS EPITHELIAL CELL,UR MANY /LPF (FEW)
[2022-05-09 13:40] LABS: BACTERIA,URINE 3+ /HPF (Neg); RBC,URINE 0-2 /HPF (0-2)
[2022-05-10] MEDS ORDERED: PRED20TA PO (12:05)
[2022-05-10] MEDS ORDERED: HYDR-3965 PO (12:05)
[2022-05-10] MEDS ORDERED: ONDA4TAB12 PO (12:05)
[2022-05-10] MEDS ORDERED: CYCL-1 PO (12:05)
== END 2022-05-09 23:59 | disposition home or self-care (01) ==
LOC: LAB 11:19
PROVIDERS: ATTEND Nurse Practitioner
DX: Z00.01 Encounter for general adult medical examination with abnormal findings (principal); Z23 Encounter for immunization; J44.9 Chronic obstructive pulmonary disease, unspecified; J30.2 Other seasonal allergic rhinitis
CPT/HCPCS: 36415; 80053; 80061; 81001; 82306; 82607; 82746; 83036; 84439; 84443; 85025

== ENCOUNTER 2022-05-10 06:01 | Emergency (ER) | payer BC ==
[~2022-05-10] VITALS: Ht 172.7 cm; Wt 106.8 kg
[2022-05-10] MEDS ORDERED: ondansetron/PF 4mg/2ml inj IV ONE (06:10)
[2022-05-10] MEDS ORDERED: morphine 4 MG/ML inj SYRINge IV ONE ×2 (06:10→09:26)
[2022-05-10] MEDS ORDERED: orphenadrine citrate 60mg/2ml inj. IM ONE (06:25)
[2022-05-10] MEDS ORDERED: gabapentin 400mg capsule PO ONE (06:30)
[2022-05-10] MEDS ORDERED: aspirin 81mg tab.chew PO ONE (06:35)
[2022-05-10] MEDS ORDERED: LIDOcaine 1% w/EPI 1:100,000 30ml vial (MDV) IJ ONE (06:36)
[2022-05-10] MEDS ORDERED: ketorolac trometh. 30mg/ml inj. IV ONE (07:15)
[2022-05-10] MEDS ORDERED: HYDROcodone/acetaminophen 5mg/325mg tablet PO ONE (07:15)
[2022-05-10 07:24] LABS: BASOPHILS # (AUTO) 0.1 X10'3 (0-0.2); BASOPHILS % (AUTO) 1.2 % (0-1); EOSINOPHILS # (AUTO) 0.3 X10'3 (0-0.9); EOSINOPHILS % (AUTO) 2.6 % (0-6); HEMATOCRIT 39.5 % (35.0-45.0); HEMOGLOBIN 13.2 g/dl (12.0-16.0); LYMPHOCYTES # (AUTO) 2.9 X10'3 (1.1-4.8); MEAN CORPUSCULAR HEMOGLOBIN 31.2 PG (27.0-31.0); MEAN CORPUSCULAR HGB CONC 33.6 g/dL (33.0-36.5); MEAN CORPUSCULAR VOLUME 92.8 FL (78-98); MONOCYTES # (AUTO) 0.7 X10'3 (0-0.9); MONOCYTES % (AUTO) 6.1 % (2-12); NEUTROPHILS # (AUTO) 7.2 X10'3 (1.8-7.7); NEUTROPHILS % (AUTO) 64.1 % (42-75); PLATELET COUNT 201 X10'3 (140-440); RED BLOOD COUNT 4.25 X10'6 (4.20-5.60); RED CELL DISTRIBUTION WIDTH 12.6 % (11.5-14.5); WHITE BLOOD COUNT 11.2 X10'3 (4.5-11.0)
[2022-05-10 07:50] LABS: ALANINE AMINOTRANSFERASE 19 U/L (12-78); ALBUMIN/GLOBULIN RATIO 1.3 (1.1-1.5); ALKALINE PHOSPHATASE 85 IU/L (46-116); ANION GAP 9 (8-16); ASPARTATE AMINO TRANSFERASE 13 U/L (10-37); BILIRUBIN,TOTAL 0.3 MG/DL (0.1-1.0); BLOOD UREA NITROGEN 13 MG/DL (7-18); CALCIUM 9.3 MG/DL (8.5-10.1); CHLORIDE 102 MMOL/L (99-107); CREATININE 0.81 MG/DL (0.40-0.90); GLUCOSE 113 MG/DL (70-104); POTASSIUM 3.5 MMOL/L (3.5-5.1); SODIUM 138 MMOL/L (135-145); TOTAL CARBON DIOXIDE 26.7 MMOL/L (24-32); TOTAL PROTEIN 7.1 G/DL (6.4-8.2); eGFR 73 ML/MIN
[2022-05-10 07:59] LABS: MAGNESIUM 1.7 MG/DL (1.5-2.4)
[2022-05-10 09:14] VITALS: BP 144/74
[2022-05-10] MEDS ORDERED: LORazepam 2 mg/ml vial IV ONE (09:25)
[2022-05-10] MEDS ORDERED: dexamethasone inj 6 MG in dextrose 5%-water 100 ML IV ONE (09:35)
[2022-05-10] MEDS ORDERED: dexamethasone sod phosphate 10mg/ml inj IV ONE (09:45)
[2022-05-10] MEDS ORDERED: fentaNYL/PF 50MCG/1 ML 2ML syringe IV ONE (11:20)
[2022-05-10] MEDS ORDERED: LIDOcaine 5% patch TP ONE (11:20)
[2022-05-10] MEDS ORDERED: CYCL-1 PO (12:05)
[2022-05-10] MEDS ORDERED: PRED20TA PO (12:05)
[2022-05-10] MEDS ORDERED: HYDR-3965 PO (12:05)
[2022-05-10] MEDS ORDERED: ONDA4TAB12 PO (12:05)
== END 2022-05-10 12:23 | disposition home or self-care (01) ==
LOC: ER 06:02
DX: M54.10 Radiculopathy, site unspecified (principal); D64.9 Anemia, unspecified; Z87.448 Personal history of other diseases of urinary system; Z79.899 Other long term (current) drug therapy
CPT/HCPCS: 36415; 71045; 72141; 72146; 80053; 83735; 83880; 84484; 85025; 96372; 96374; 96375; 96376; 99285; J1100; J1885; J2060; J2270; J2360; J2405; J3010; J3490; 93005

== ENCOUNTER 2023-01-09 02:15 | Emergency (ER) | payer OTHER, BC ==
[~2023-01-09] VITALS: Ht 175.3 cm; Wt 95.4 kg
[~2023-01-09 02:15] MED LIST changes: -ORPH100T2 PO; +ORPH100T4 PO
[2023-01-09] MEDS ORDERED: ondansetron/PF 4mg/2ml inj IV ONE (02:20)
[2023-01-09] MEDS ORDERED: morphine 4 MG/ML inj SYRINge IV ONE (02:20)
[2023-01-09] MEDS ORDERED: HYDROcodone/acetaminophen 10/325mg tab PO ONE (05:20)
[2023-01-09] MEDS ORDERED: ondansetron 4mg rapidly disintigrating tab PO ONE (05:20)
[2023-01-09] MEDS ORDERED: ONDA8TAB13 PO (05:21)
[2023-01-09] MEDS ORDERED: HYDR-3965 PO (05:21)
--- NOTE | 2023-01-09 05:38 | NUR ---
iv dc'd pt being discharged dressing applied head injury education given. pt understood with return demo
[2023-01-09 05:40] VITALS: BP 138/80
== END 2023-01-09 05:41 | disposition home or self-care (01) ==
LOC: ER 02:16
DX: S06.0X0A Concussion without loss of consciousness, initial encounter (principal); W19.XXXA Unspecified fall, initial encounter; Y93.89 Activity, other specified; Y92.89 Other specified places as the place of occurrence of the external cause; Y99.8 Other external cause status
CPT/HCPCS: 70450; 72125; 96374; 96375; 99285; J2270; J2405

== ENCOUNTER 2024-10-11 10:28 | Emergency (ER) | payer BC, OTHER ==
[~2024-10-11] VITALS: Ht 172.7 cm; Wt 107.1 kg
[~2024-10-11 10:28] MED LIST changes: -DICL100G30 TOP; +DICL100G59 TOP; +ONDA-243 PO; +ONDA-245 PO; -ONDA4TAB12 PO
[2024-10-11 10:32] VITALS: BP 154/76; PULSE 75; RESP 17; O2SAT 96
[2024-10-11 13:02] VITALS: TEMP 97.1
== END 2024-10-11 12:45 | disposition home or self-care (01) ==
LOC: ER 10:29
DX: S82.51XA Displaced fracture of medial malleolus of right tibia, initial encounter for closed fracture (principal); D64.9 Anemia, unspecified; Z79.899 Other long term (current) drug therapy; Z72.89 Other problems related to lifestyle; X58.XXXA Exposure to other specified factors, initial encounter; Y93.89 Activity, other specified; Y92.89 Other specified places as the place of occurrence of the external cause; Y99.8 Other external cause status
CPT/HCPCS: 29515; 73610; 99283

== ENCOUNTER → 2024-10-14 | Outpatient (CLI) | payer BC ==
[~2024-10-14] VITALS: Ht 172.7 cm; Wt 105.7 kg
[~2024-10-14] MED LIST changes: +ALBU8HFA INH; +BUDE10.2 INH; +ceFAZolin 2gm in dextrose, iso 50 ML IV ONE; +famotidine 20mg tablet PO ONE; +ringers solution, lacted 1,000 ML IV SCH
[2024-10-14 16:57] LABS: BASOPHILS # (AUTO) 0.1 X10'3 (0-0.2); BASOPHILS % (AUTO) 0.8 % (0-1); EOSINOPHILS # (AUTO) 0.4 X10'3 (0-0.9); EOSINOPHILS % (AUTO) 3.8 % (0-6); HEMATOCRIT 42.9 % (35.0-45.0); HEMOGLOBIN 14.3 g/dl (12.0-16.0); LYMPHOCYTES # (AUTO) 2.6 X10'3 (1.1-4.8); LYMPHOCYTES % (AUTO) 26.5 % (21-51); MEAN CORPUSCULAR HEMOGLOBIN 30.8 PG (27.0-31.0); MEAN CORPUSCULAR HGB CONC 33.3 g/dL (33.0-36.5); MEAN CORPUSCULAR VOLUME 92.4 FL (78-98); MEAN PLATELET VOLUME 8.1 FL (7.4-10.4); MONOCYTES # (AUTO) 0.5 X10'3 (0-0.9); MONOCYTES % (AUTO) 5.1 % (2-12); NEUTROPHILS # (AUTO) 6.3 X10'3 (1.8-7.7); NEUTROPHILS % (AUTO) 63.8 % (42-75); PLATELET COUNT 280 X10'3 (140-440); RED BLOOD COUNT 4.65 X10'6 (4.20-5.60); RED CELL DISTRIBUTION WIDTH 13.3 % (11.5-14.5); WHITE BLOOD COUNT 9.8 X10'3 (4.5-11.0)
[2024-10-14 17:00] LABS: BILIRUBIN,URINE NEGATIVE (Neg); CLARITY,URINE CLEAR (Clear); COLOR,URINE YELLOW (Yellow); GLUCOSE, URINE NEGATIVE (Neg); KETONES,URINE 15 mg/dl (Neg); LEUKOCYTE ESTERASE ,URINE NEGATIVE (Neg); NITRITES, URINE NEGATIVE (Neg); OCCULT BLOOD,URINE NEGATIVE (Neg); PH,URINE 5.5 (4.8-8.0); PROTEIN,URINE NEGATIVE (Neg); UROBILINOGEN,URINE 0.2 E.U/dL (0.2-1.0)
[2024-10-14 17:14] LABS: UA COLLECTION TYPE CLN CATCH MIDSTREAM
[2024-10-14 17:23] LABS: ALANINE AMINOTRANSFERASE 41 U/L (12-78); ALBUMIN 3.8 G/DL (3.4-5.0); ALKALINE PHOSPHATASE 102 IU/L (46-116); ANION GAP 9 (8-16); ASPARTATE AMINO TRANSFERASE 25 U/L (10-37); BILIRUBIN,TOTAL 0.5 MG/DL (0.1-1.0); BLOOD UREA NITROGEN 15 MG/DL (7-18); BUN/CREATININE RATIO 18.8 (10.0-20.0); CALCIUM 9.6 MG/DL (8.5-10.1); CHLORIDE 103 MMOL/L (99-107); GLUCOSE 101 MG/DL (70-104); SODIUM 140 MMOL/L (135-145); TOTAL CARBON DIOXIDE 27.7 MMOL/L (24-32); TOTAL PROTEIN 7.6 G/DL (6.4-8.2); eGFR 74 ML/MIN
== END | disposition home or self-care (01) ==
LOC: RAD 16:24
PROVIDERS: ATTEND Podiatrist Foot & Ankle Surgery
DX: M25.471 Effusion, right ankle (principal)
CPT/HCPCS: 36415; 80053; 81003; 85025; J0690; J7120

== ENCOUNTER 2024-10-15 13:20 | Day surgery (SDC) | payer BC ==
[~2024-10-15] VITALS: Ht 172.7 cm; Wt 105.7 kg
[2024-10-15] VITALS (9 sets, daily range): BP systolic 138–169; BP diastolic 73–97; PULSE 70–100; RESP 10–23; TEMP 97.4; O2SAT 92–100
[~2024-10-15 13:20] MED LIST changes: -ALBU8HFA INH; -BUDE10.2 INH; -ceFAZolin 2gm in dextrose, iso 50 ML IV ONE; -famotidine 20mg tablet PO ONE; -ringers solution, lacted 1,000 ML IV SCH
[2024-10-15] MEDS ORDERED: BUDE10.2 INH (13:41)
[2024-10-15] MEDS ORDERED: ALBU8HFA INH (13:41)
[2024-10-15] MEDS: famotidine 20mg tablet PO ONE (14:13)
[2024-10-15] MEDS: ringers solution, lacted 1,000 ML IV SCH (14:13)
[2024-10-15] MEDS: ceFAZolin 2gm in dextrose, iso 50 ML IV ONE (14:13)
[2024-10-15] MEDS ORDERED: bacitracin 15gm ointment TP ONE (15:54)
[2024-10-15] MEDS ORDERED: BUPIVAcaine 2.5mg/ml inj 50ml vial (contains preservative) ONE (15:54)
[2024-10-15] MEDS ORDERED: sevoflurane 250ml liquid IH ONE (16:46)
[2024-10-15] MEDS ORDERED: cloNIDine hcl/PF 100mcg/ml inj ONE (16:50)
[2024-10-15] MEDS ORDERED: fentaNYL/PF 50MCG/1 ML 2ML syringe ONE (16:52)
[2024-10-15] MEDS ORDERED: midazolam 1 mg/ML 2ml injection ONE (16:52)
[2024-10-15] MEDS ORDERED: propofol inj 20 ML IV ONE (16:55)
[2024-10-15] MEDS ORDERED: ROPIVAcaine 0.5% (5mg/ml) 30ml vial ONE (17:00)
[2024-10-15] MEDS ORDERED: dexamethasone sod phosphate 4mg/ml inj. ONE (18:45)
[2024-10-15] MEDS ORDERED: ringers solution, lacted 1,000 ML IV SCH (19:20)
[2024-10-15] MEDS ORDERED: meperidine/PF 25mg/ml syringe IV PRN (19:20)
[2024-10-15] MEDS ORDERED: morphine 4 MG/ML inj SYRINge IV PRN (19:20)
[2024-10-15] MEDS ORDERED: HYDROmorphone/PF 0.2 MG/ML SYRINGE IV PRN ×2 (19:20)
[2024-10-15] MEDS ORDERED: morphine 2 MG/ML inj. syringe IV PRN (19:20)
[2024-10-15] MEDS ORDERED: ondansetron/PF 4mg/2ml inj IV PRN (19:20)
[2024-10-15] MEDS ORDERED: labetalol 20mg/4ml (5mg/ml) syringe IV PRN (19:20)
== END 2024-10-15 20:07 | disposition home or self-care (01) ==
LOC: PAS 13:20
PROVIDERS: ATTEND Podiatrist Foot & Ankle Surgery
DX: S82.841A Displaced bimalleolar fracture of right lower leg, initial encounter for closed fracture (principal); M19.071 Primary osteoarthritis, right ankle and foot; X50.1XXA Overexertion from prolonged static or awkward postures, initial encounter; Y93.53 Activity, golf; Y92.89 Other specified places as the place of occurrence of the external cause; Y99.8 Other external cause status; Z79.899 Other long term (current) drug therapy; G89.18 Other acute postprocedural pain; Z98.890 Other specified postprocedural states
CPT/HCPCS: 27814; 64445; 64447; 71045; 73610; 82948; 93005; A6223; C1713; J0690; J0735; J1100; J2250; J2405; J2704; J2795; J3010; J7030; J7120; Z7506; Z7508; Z7512; 76000; A4215; A4618; A6253; A6449; A7000; J3490

== ENCOUNTER 2024-12-18 12:42 | Outpatient (CLI) | payer BC ==
[~2024-12-18 12:42] MED LIST changes: +ALBU8HFA INH; +BUDE10.2 INH; -CYCL-1 PO; -DIAZ5TAB PO; -DICL100G59 TOP; -DICL50TA8 PO; -IRON1CAP34 PO; -LEVO750T21 PO; -ONDA-243 PO; -ONDA-245 PO; -ORPH100T4 PO
[2024-12-18 14:12] LABS: HEMOGLOBIN A1C 5.3 % (4.5-6.2)
[2024-12-18 15:45] LABS: FREE T4 (FREE THYROXINE) 0.93 NG/DL (0.73-1.40); THYROID STIMULATING HORMONE 0.6 ulU/ml (0.34-4.50)
== END 2024-12-18 23:59 | disposition home or self-care (01) ==
LOC: LAB 12:42
PROVIDERS: ATTEND Nurse Practitioner
DX: R73.9 Hyperglycemia, unspecified (principal); R53.83 Other fatigue
CPT/HCPCS: 36415; 82180; 82306; 82607; 82746; 83036; 84439; 84443